=== PATIENT | male | born 1980 | race Caucasian/White ===

== ENCOUNTER 2018-09-22 16:02 | Observation (INO) | payer BC, OTHER ==
[2018-09-22] MEDS ORDERED: metroNIDAZOLE/Normal Saline 500 MG in Premix Bag 1 BAG IV ONE (16:19)
[2018-09-22] MEDS ORDERED: Sodium Chloride 0.9% 10 ML Syringe FLUSH PRN (16:21)
[2018-09-22] MEDS ORDERED: cefTRIAXone 2 GM in Sodium Chloride 0.9% 100 ML IV ONE (16:21)
[2018-09-22] MEDS ORDERED: Lidocaine 1% with EPINEPHrine 1:100,000 20 ML MDV ONE (18:07)
[2018-09-22] MEDS ORDERED: Rocuronium 50 MG/5 ML Vial ONE (18:07)
[2018-09-22] MEDS ORDERED: Ondansetron 4 MG/2 ML SDV ONE (18:07)
[2018-09-22] MEDS ORDERED: Lidocaine 1% 4 ML ONE (18:07)
[2018-09-22] MEDS ORDERED: Midazolam 1 MG/ML 2 ML SDV ONE (18:07)
[2018-09-22] MEDS ORDERED: Propofol 200 MG/20 ML SDV ONE (18:07)
[2018-09-22] MEDS ORDERED: Bupivacaine 0.5%/EPINEPHrine 1:200,000 50 ML MDV ONE (18:07)
[2018-09-22] MEDS ORDERED: fentaNYL 250 MCG/5 ML SDV ONE ×2 (18:07→19:08)
--- NOTE | 2018-09-22 18:24 | PCM.PREANE ---
Preanesthetic Assessment - Anesthesia/Transfusion/Family Hx Anesthesia History: Prior Anesthesia Without Reaction Family History of Anesthesia Reaction: No Transfusion History: No Prior Transfusion(s) - Review of Systems General: Malaise Pulmonary: No Symptoms Cardiovascular: No Symptoms Gastrointestinal: Abdominal Pain Neurological: No Symptoms Other: Reports: None - Physical Assessment NPO Status Date: 09/22/18 NPO Status Time: 04:45 Pulse: 67 O2 Sat by Pulse Oximetry: 97 Respiratory Rate: 16 Blood Pressure: 152/78 Temperature: 36.8 C Vital Signs: Last Vital Signs Temp 36.8 C 09/22/18 16:09 Pulse 67 09/22/18 16:09 Resp 16 09/22/18 16:09 BP 152/78 H 09/22/18 16:09 Pulse Ox 97 09/22/18 16:09 Height: 1.75 m Weight: 88.451 kg ASA Class: 2 Mental Status: Alert & Oriented x3 Airway Class: Mallampati = 1 Dentition: Reports: Normal Dentition, Alva(s) Thyro-Mental Finger Breadths: 3 Mouth Opening Finger Breadths: 3 ROM/Head Extension: Full Lungs: Clear to Auscultation, Normal Respiratory Effort Cardiovascular: Regular Rate, Regular Rhythm - Allergies Allergies/Adverse Reactions: Allergies Allergy/AdvReac Type Severity Reaction Status Date / Time No Known Allergies Allergy Verified 09/22/18 16:11 - Blood Blood Available: No Product(s) Available: None - Anesthesia Plan Pre-Op Medication Ordered: None - Acknowledgements Anesthesia Type Planned: General Anesthesia Pt an Appropriate Candidate for the Planned Anesthesia: Yes Alternatives and Risks of Anesthesia Discussed w Pt/Guardian: Yes Pt/Guardian Understands and Agrees with Anesthesia Plan: Yes PreAnesthesia Questionnaire - Past Health History Medical/Surgical History: Denies Medical/Surgical History Gastrointestinal History: Reports: GERD - SUBSTANCE USE Smoking Status *Q: Never Smoker Recreational Drug Use History: No - HOME MEDS Home Medications: Home Meds . [No Known Home Meds] 09/22/18 [History] - CURRENT (IN HOUSE) MEDS Current Meds: Current Medications Sodium Chloride (Saline Flush) 10 ml FLUSH ASDIRECTED PRN PRN Reason: Keep Vein Open Last Admin: 09/22/18 16:54 Dose: 10 ml Discontinued Medications Bupivacaine HCl/Epinephrine Bitart (Marcaine 0.5%/Epinephrine 1:200,000) Confirm Administered Dose 50 ml .ROUTE .STK-MED ONE Stop: 09/22/18 18:08 Fentanyl (Sublimaze) Confirm Administered Dose 250 mcg .ROUTE .STK-MED ONE Stop: 09/22/18 18:08 Ceftriaxone Sodium 2 gm/ (Sodium Chloride) 100 mls @ 200 mls/hr IV ONETIME ONE Stop: 09/22/18 16:50 Last Admin: 09/22/18 16:54 Dose: 200 mls/hr Metronidazole 500 mg/ Premix 100 mls @ 100 mls/hr IV ONETIME ONE Stop: 09/22/18 17:18 Last Admin: 09/22/18 16:54 Dose: 100 mls/hr Lidocaine HCl (Xylocaine-Mpf 1%) Confirm Administered Dose 4 mls @ as directed .ROUTE .STK-MED ONE Stop: 09/22/18 18:08 Lidocaine/Epinephrine (Xylocaine 1% With Epinephrine 1:100,000) Confirm Administered Dose 40 ml .ROUTE .STK-MED ONE Stop: 09/22/18 18:08 Midazolam HCl (Versed 1 Mg/Ml) Confirm Administered Dose 2 mg .ROUTE .STK-MED ONE Stop: 09/22/18 18:08 Ondansetron HCl (Zofran) Confirm Administered Dose 4 mg .ROUTE .STK-MED ONE Stop: 09/22/18 18:08 Propofol (Diprivan 20 Ml) Confirm Administered Dose 200 mg .ROUTE .STK-MED ONE Stop: 09/22/18 18:08 Rocuronium [place] (Zemuron) Confirm Administered Dose 50 mg .ROUTE .STK-MED ONE Stop: 09/22/18 18:08
[2018-09-22] MEDS ORDERED: HYDROmorphone 0.5 MG/0.5 ML Syringe ONE ×2 (18:56→18:57)
[2018-09-22] MEDS ORDERED: Lactated Ringers 1,000 ML ONE ×2 (19:08)
[2018-09-22] MEDS ORDERED: fentaNYL 100 MCG/2 ML SDV ONE (19:38)
--- NOTE | 2018-09-22 20:18 | PCM.HP ---
H&P History of Present Illness - General Date of Service: 09/22/18 Admit Problem/Dx: Admission Diagnosis/Problem Admission Diagnosis/Problem Appendectomy Source of Information: Patient History Limitations: Reports: No Limitations - History of Present Illness Initial Comments - Free Text/Narative: The patient is a 38 mL presents with a one-day history of abdominal pain. He reports having pain. 5 days ago that resolved and recurred today with more intensity. He reports feeling bloated and has obstipation. He denies any fever or chills. He denies a previous illness. He denies any hematochezia or melena. He was seen at the [facility] and had lab and CT evaluation. His white count of 12.9. A CT revealed findings of acute appendicitis - Related Data Allergies/Adverse Reactions: Allergies Allergy/AdvReac Type Severity Reaction Status Date / Time No Known Allergies Allergy Verified 09/22/18 16:11 Home Medications: Home Meds . [No Known Home Meds] 09/22/18 [History] Past Medical History - Past Health History Medical/Surgical History: Denies Medical/Surgical History Gastrointestinal History: Reports: GERD Social & Family History - Family History Cardiac: Reports: CAD, High Cholesterol, Hypertension - Tobacco Use Smoking Status *Q: Never Smoker - Caffeine Use Caffeine Use: Reports: Coffee - Recreational Drug Use Recreational Drug Use: No H&P Review of Systems - Review of Systems: Review Of Systems: See Below General: Reports: No Symptoms HEENT: Reports: No Symptoms Pulmonary: Reports: No Symptoms Cardiovascular: Reports: No Symptoms Gastrointestinal: Reports: Abdominal Pain, Decreased Appetite. Denies: Diarrhea Genitourinary: Reports: No Symptoms Musculoskeletal: Reports: No Symptoms Skin: Reports: No Symptoms Psychiatric: Reports: No Symptoms Neurological: Reports: No Symptoms Exam - Exam Exam: See Below - Vital Signs Vital Signs: Last Vital Signs Temp 36.8 C 09/22/18 18:24 Pulse 67 09/22/18 18:24 Resp 16 09/22/18 18:24 BP 152/78 H 09/22/18 18:24 Pulse Ox 97 09/22/18 18:24 Weight: 88.451 kg - Exam Quality Assessment: No: Supplemental Oxygen General: Alert, Oriented HEENT: Conjunctiva Clear, EOMI Neck: Supple Lungs: Normal Respiratory Effort GI/Abdominal Exam: Soft, No Distention, Tender (in RLQ). No: Guarding Extremities: Normal Inspection, No Pedal Edema Skin: Warm, Dry, Intact Neurological: Cranial Nerves Intact Neuro Extensive - Mental Status: Alert, Oriented x3, Normal Mood/Affect *Q Meaningful Use (ADM) - VTE Risk Assess *Q Each Risk Factor Represents 1 Point: Minor Surgery Planned Total Score 1 Point Risk Factors: 1 Problem List Initiated/Reviewed/Updated: Yes Orders Last 24hrs: Active Orders 24 hr Category Date Time Status Patient Status [ADT] Routine ADT 09/22/18 17:59 Active Peripheral IV Care [RC] . DIRECTED Care 09/22/18 16:22 Active Sodium Chloride 0.9% [Saline Flush] Med 09/22/18 16:21 Active 10 ml FLUSH ASDIRECTED PRN Peripheral IV Insertion Adult [OM.PC] Routine Oth 09/22/18 16:21 Ordered Schedule Procedure [COMM] Stat Oth 09/22/18 18:26 Ordered Medication Orders Sodium Chloride (Saline Flush) 10 ml FLUSH ASDIRECTED PRN PRN Reason: Keep Vein Open Last Admin: 09/22/18 16:54 Dose: 10 ml Assessment/Plan Comment:: 38-year-old gentleman with acute appendicitis -Plan for laparoscopic appendectomy, possible open. We discussed risks of bleeding, infection, possible bowel injury, and possible failure staple line. His written consent was obtained - IV antibiotics of Rocephin and metronidazole - Nothing by mouth - IV fluid resuscitation - Admission based on intraoperative findings Linda Stevens MD General Surgery
--- NOTE | 2018-09-22 20:19 | PCM.OPNOTE ---
- General Post-Op/Procedure Note Date of Surgery/Procedure: 09/22/18 Operative Procedure(s): Laparoscopic appendectomy Findings: Stiff and friable appendix and distal cecum. Purulent material within the appendix. Pre Op Diagnosis: Acute appendicitis Post-Op Diagnosis: Same Anesthesia Technique: General ET Tube Primary Surgeon: Linda Stevens Anesthesia Provider: Roger Rizo Pathology: Appendix Fluid Replacement, Intraop: 2,000 Output, Urine Amount: 0 EBL in mLs: 60 Complications: None apparent Condition: Good
[2018-09-22] MEDS ORDERED: Ondansetron 4 MG Tab.DIS PO PRN (20:25)
[2018-09-22] MEDS ORDERED: Acetaminophen/HYDROcodone 325-5 MG Tab PO PRN (20:25)
--- NOTE | 2018-09-22 20:25 | PCM.PRNOTE ---
- Free Text/Narrative Note: Operative Report Date of surgery: September 22, 2018 Preoperative diagnosis: acute appendicitis. Postoperative diagnosis: same Procedure performed: laparoscopic appendectomy Surgeon: Dr. Linda Stevens Anesthesia: General Grey Roll Man: . Roger Rizo CRNA Estimated blood loss 60 mL IV fluids: 2000 mL Urine output: 0 Drains and lines: None Findings: Stiff and friable appendix and distal cecum. Purulent material within the appendix Pathology: . Appendix Indications for procedure: The patient is a 38 year old male presents with findings of acute appendicitis. He was counseled for laparoscopic appendectomy with possible conversion to open. Risks of bleeding, infection, bowel injury and possible staple line failure were discussed. His written consent was obtained. Description of procedure: The patient was taken back to the operating room and placed in supine position on the operating table. SCD boots were in place and functional prior to the start of the procedure. Preoperative antibiotics were administered according to SCIP guidelines. He voided prior to coming into the OR, no Taylor was inserted. The patient had successful induction of general anesthesia and was intubated without difficulty. Pt was then prepped and draped in standard surgical fashion and a timeout was performed. We began by making a 15 mm incision in the infraumbilical skin and deepened down to level of the fascia which was then grasped and incised sharply. We entered the peritoneum and then placed stay sutures of 0 Vicryl on the fascial edges. A 12 mm Dougherty port was then placed into the umbilicus and the balloon was inflated. The abdomen was insufflated to 15 mmHg a 5 mm camera was inserted. There was no evidence of any injury created from entry into the abdomen. A TAP block was performed using mixed 1% lidocaine with epinephrine and 0.5% bupivacaine with epinephrine . We then proceeded to place a 5 mm port under direct visualization in the suprapubic midline and an additional 5mm port in the left lower quadrant. The patient was then positioned in Trendelenburg with right side elevated and we proceeded to mobilize the appendix. The appendix was very stiff and adherent to the abdominal wall while grasping the appendix, the appendix ruptured and purulent material was expressed. The appendix was then grasped and with blunt dissection was brought into the surgical field. The mesoappendix dissected from the appendix and taken with a vascular staple load. The appendix was then taken with a tissue staple load after more dissection of the base of the cecum. The appendix had from the cecum, right at its base so a small amount of cecum was also taken. After this was done, the specimen was placed in Endo Catch bag. An additional small portion of appendix tissue was dissected free from the area place a separate Endo Catch bag. We inspected the area and noted that there was a small area of cecum that did not appear to be well closed with nitin. An additional staple line was fired over this area. We then inspected and suctioned up any blood in the area. There was no active bleeding at the end of this case. All of the irrigation was removed from the abdomen. The specimens were withdrawn from the abdomen . The abdomen was then desufflated and the umbilical fascia closed with 0 Vicryl sutures and the stay sutures were tied, effectively closing the umbilical port site. The skin was then reapproximated at all port sites using a 4-0 Monocryl subcutaneous stitch and covered with Dermabond surgical glue. The patient tolerated the procedure. He was extubated and transported to the PACU in stable condition. All sponge and needle counts were correct. I was present and scrubbed for the entirety of the procedure. Linda Stevens MD General Surgery
[2018-09-22] MEDS ORDERED: HYDROmorphone 0.5 MG/0.5 ML Syringe IVPUSH PRN ×2 (20:29)
[2018-09-22] MEDS ORDERED: fentaNYL 100 MCG/2 ML SDV IVPUSH PRN (20:29)
[2018-09-22] MEDS ORDERED: Ketorolac 30 MG/ML SDV IVPUSH PRN (20:29)
[2018-09-22] MEDS ORDERED: Dextrose 5%-0.45% NaCl 1,000 ML IV SCH (20:30)
--- NOTE | 2018-09-22 20:31 | PCM.POSTAN ---
POST ANESTHESIA ASSESSMENT - MENTAL STATUS Mental Status: Alert, Oriented - VITAL SIGNS Pulse Rate: 100 SaO2: 96 Resp Rate: 17 Blood Pressure: 152/84 Temperature: 37.1 C - RESPIRATORY Respiratory Status: Respiratory Rate WNL, Airway Patent, O2 Saturation Stable - CARDIOVASCULAR CV Status: Pulse Rate WNL, Blood Pressure Stable - GASTROINTESTINAL GI Status: No Symptoms - PAIN Pain Score: 2 - POST OP HYDRATION Hydration Status: Adequate & Stable - OBSERVATIONS Free Text/Narrative:: no anesthesia complications noted
[2018-09-22] MEDS: Ibuprofen 600 MG Tab PO PRN (22:49)
[2018-09-22] MEDS: metroNIDAZOLE/Normal Saline 500 MG in Premix Bag 1 BAG IV SCH (23:37)
[2018-09-22] MEDS: Heparin Sodium 5,000 Units/ML Vial SUBCUT SCH (23:38)
[2018-09-23] MEDS: Ibuprofen 600 MG Tab PO PRN (06:35)
[2018-09-23] MEDS: metroNIDAZOLE/Normal Saline 500 MG in Premix Bag 1 BAG IV SCH (07:01)
[2018-09-23] MEDS: Heparin Sodium 5,000 Units/ML Vial SUBCUT SCH (07:02)
--- NOTE | 2018-09-23 07:18 | PCM.SURGPN ---
- General Info Date of Service: 09/23/18 POD#: 1 Functional Status: Reports: Pain Controlled, Tolerating Diet, Ambulating, Urinating, Incentive Spirometry - Patient Data Vitals - Most Recent: Last Vital Signs Temp 37.0 C 09/23/18 04:45 Pulse 83 09/23/18 04:45 Resp 18 09/23/18 04:45 BP 125/55 L 09/23/18 04:45 Pulse Ox 93 L 09/23/18 04:45 Weight - Most Recent: 91.716 kg I&O - Last 24 Hours: Intake & Output 09/22/18 09/23/18 09/23/18 22:59 06:59 14:59 Intake Total 2250 370 Output Total 0 300 Balance 2250 70 Med Orders - Current: Current Medications Hydrocodone Bitart/Acetaminophen (Mcandrews 325-5 Mg) 2 tab PO Q4H PRN PRN Reason: Pain (moderate 4-6) Heparin Sodium (Porcine) (Heparin Sodium) 5,000 units SUBCUT Q8H [facility] Last Admin: 09/23/18 07:02 Dose: 5,000 units Hydromorphone HCl (Dilaudid) 0.5 mg IVPUSH Q3H PRN PRN Reason: Breakthrough Pain Dextrose/Sodium Chloride (Dextrose 5%-1/2 Ns) 1,000 mls @ 125 mls/hr IV ASDIRECTED [facility] Last Admin: 09/22/18 22:39 Dose: 125 mls/hr Metronidazole 500 mg/ Premix 100 mls @ 100 mls/hr IV Q8H [facility] Stop: 09/23/18 08:59 Last Admin: 09/23/18 07:01 Dose: 100 mls/hr Ibuprofen (Motrin) 600 mg PO Q6H PRN PRN Reason: Pain (mild 1-3) Last Admin: 09/23/18 06:35 Dose: 600 mg Ondansetron HCl (Zofran Odt) 4 mg PO Q6H PRN PRN Reason: nausea, able to take PO Last Admin: 09/23/18 02:57 Dose: 4 mg Sodium Chloride (Saline Flush) 10 ml FLUSH ASDIRECTED PRN PRN Reason: Keep Vein Open Last Admin: 09/22/18 16:54 Dose: 10 ml Discontinued Medications Bupivacaine HCl/Epinephrine Bitart (Marcaine 0.5%/Epinephrine 1:200,000) Confirm Administered Dose 50 ml .ROUTE .STK-MED ONE Stop: 09/22/18 18:08 Last Admin: 09/22/18 18:56 Dose: 30 ml Fentanyl (Sublimaze) Confirm Administered Dose 250 mcg .ROUTE .STK-MED ONE Stop: 09/22/18 18:08 Fentanyl (Sublimaze) Confirm Administered Dose 250 mcg .ROUTE .STK-MED ONE Stop: 09/22/18 19:09 Fentanyl (Sublimaze) Confirm Administered Dose 100 mcg .ROUTE .STK-MED ONE Stop: 09/22/18 19:39 Fentanyl (Sublimaze) 50 mcg IVPUSH Q5M PRN PRN Reason: Pain Hydromorphone HCl (Dilaudid) Confirm Administered Dose 0.5 mg .ROUTE .STK-MED ONE Stop: 09/22/18 18:57 Hydromorphone HCl (Dilaudid) Confirm Administered Dose 0.5 mg .ROUTE .STK-MED ONE Stop: 09/22/18 18:58 Hydromorphone HCl (Dilaudid) 0.5 mg IVPUSH Q10M PRN PRN Reason: Pain (severe 7-10) Ceftriaxone Sodium 2 gm/ (Sodium Chloride) 100 mls @ 200 mls/hr IV ONETIME ONE Stop: 09/22/18 16:50 Last Admin: 09/22/18 16:54 Dose: 200 mls/hr Metronidazole 500 mg/ Premix 100 mls @ 100 mls/hr IV ONETIME ONE Stop: 09/22/18 17:18 Last Admin: 09/22/18 16:54 Dose: 100 mls/hr Lidocaine HCl (Xylocaine-Mpf 1%) Confirm Administered Dose 4 mls @ as directed .ROUTE .STK-MED ONE Stop: 09/22/18 18:08 Lactated Ringer's (Ringers, Lactated) Confirm Administered Dose 1,000 mls @ as directed .ROUTE .STK-MED ONE Stop: 09/22/18 19:09 Lactated Ringer's (Ringers, Lactated) Confirm Administered Dose 1,000 mls @ as directed .ROUTE .STK-MED ONE Stop: 09/22/18 19:09 Ketorolac Tromethamine (Toradol) 30 mg IVPUSH ONETIME PRN PRN Reason: Pain Last Admin: 09/23/18 02:57 Dose: 30 mg Lidocaine/Epinephrine (Xylocaine 1% With Epinephrine 1:100,000) Confirm Administered Dose 40 ml .ROUTE .STK-MED ONE Stop: 09/22/18 18:08 Last Admin: 09/22/18 18:56 Dose: 30 ml Midazolam HCl (Versed 1 Mg/Ml) Confirm Administered Dose 2 mg .ROUTE .STK-MED ONE Stop: 09/22/18 18:08 Ondansetron HCl (Zofran) Confirm Administered Dose 4 mg .ROUTE .STK-MED ONE Stop: 09/22/18 18:08 Propofol (Diprivan 20 Ml) Confirm Administered Dose 200 mg .ROUTE .STK-MED ONE Stop: 09/22/18 18:08 Rocuronium [place] (Zemuron) Confirm Administered Dose 50 mg .ROUTE .STK-MED ONE Stop: 09/22/18 18:08 - Exam Wound/Incisions: Healing Well, No Drainage General: Alert, Oriented Lungs: Normal Respiratory Effort GI/Abdominal Exam: Soft, No Distention, Tender (appropriately TTP) Skin: Warm, Dry, Intact - Problem List & Annotations (1) Acute appendicitis SNOMED Code(s): 29359729 Code(s): K35.80 - UNSPECIFIED ACUTE APPENDICITIS Status: Acute Current Visit: Yes Qualifiers: Acute appendicitis type: with localized peritonitis Appendicitis gangrene presence: without gangrene Appendicitis abscess presence: without abscess - Problem List Review Problem List Initiated/Reviewed/Updated: Yes - My Orders Last 24 Hours: Active Orders 24 hr Category Date Time Status Patient Status [ADT] Routine ADT 09/22/18 17:59 Active Patient Status [ADT] Routine ADT 09/22/18 20:25 Active Antiembolic Devices [RC] BID Care 09/22/18 20:27 Active Communication Order [RC] BID Care 09/22/18 20:29 Active Communication Order [RC] BID Care 09/22/18 20:31 Active May Shower [RC] ASDIRECTED Care 09/22/18 20:25 Active Notify Provider [RC] ASDIRECTED Care 09/22/18 20:29 Active Oxygen Therapy [RC] PRN Care 09/22/18 20:25 Active Pulse Oximetry [RC] ASDIRECTED Care 09/22/18 20:29 Active RT Incentive Spirometry [RC] Q1HWA Care 09/22/18 20:29 Active Up ad Jacqueline [RC] BID Care 09/22/18 20:25 Active VTE/DVT Education [] DAILY Care 09/22/18 20:25 Active Vital Signs [] Q4HR Care 09/22/18 20:25 Active Regular Diet [DIET] Diet 09/22/18 Dinner Active Acetaminophen/HYDROcodone [Mcandrews 325-5 MG] Med 09/22/18 20:25 Active 2 tab PO Q4H PRN Dextrose 5%-0.45% NaCl [Dextrose 5%-1/2 NS] 1,000 ml Med 09/22/18 20:30 Active IV ASDIRECTED HYDROmorphone [Dilaudid] Med 09/22/18 20:29 Active 0.5 mg IVPUSH Q3H PRN Heparin Sodium Med 09/23/18 00:00 Active 5,000 units SUBCUT Q8H Ibuprofen [Motrin] Med 09/22/18 20:25 Active 600 mg PO Q6H PRN Ondansetron [Zofran ODT] Med 09/22/18 20:25 Active 4 mg PO Q6H PRN Sodium Chloride 0.9% [Saline Flush] Med 09/22/18 16:21 Active 10 ml FLUSH ASDIRECTED PRN metroNIDAZOLE/Normal Saline [Flagyl 500 MG in NS 100 ML Med 09/23/18 00:00 Active ] 500 mg Premix Bag 1 bag IV Q8H Peripheral IV Insertion Adult [OM.PC] Routine Oth 09/22/18 16:21 Ordered Schedule Procedure [COMM] Stat Oth 09/22/18 18:26 Ordered Sequential Compression Device [OM.PC] Per Unit Routine Oth 09/22/18 20:26 Ordered Resuscitation Status Routine Resus Stat 09/22/18 20:25 Ordered Medication Orders Hydrocodone Bitart/Acetaminophen ([place]and[place] 325-5 Mg) 2 tab PO Q4H PRN PRN Reason: Pain (moderate 4-6) Heparin Sodium (Porcine) (Heparin Sodium) 5,000 units SUBCUT Q8H [facility] Last Admin: 09/23/18 07:02 Dose: 5,000 units Admin: 09/22/18 23:38 Dose: 5,000 units Hydromorphone HCl (Dilaudid) 0.5 mg IVPUSH Q3H PRN PRN Reason: Breakthrough Pain Dextrose/Sodium Chloride (Dextrose 5%-1/2 Ns) 1,000 mls @ 125 mls/hr IV ASDIRECTED [facility] Last Admin: 09/22/18 22:39 Dose: 125 mls/hr Metronidazole 500 mg/ Premix 100 mls @ 100 mls/hr IV Q8H [facility] Stop: 09/23/18 08:59 Last Admin: 09/23/18 07:01 Dose: 100 mls/hr Infusion: 09/23/18 00:37 Dose: 100 mls/hr Admin: 09/22/18 23:37 Dose: 100 mls/hr Ibuprofen (Motrin) 600 mg PO Q6H PRN PRN Reason: Pain (mild 1-3) Last Admin: 09/23/18 06:35 Dose: 600 mg Admin: 09/22/18 22:49 Dose: 600 mg Ondansetron HCl (Zofran Odt) 4 mg PO Q6H PRN PRN Reason: nausea, able to take PO Last Admin: 09/23/18 02:57 Dose: 4 mg Sodium Chloride (Saline Flush) 10 ml FLUSH ASDIRECTED PRN PRN Reason: Keep Vein Open Last Admin: 09/22/18 16:54 Dose: 10 ml - Assessment Assessment (Free Text/Narrative):: 38 y/o male with acute appendicitis. Now POD1 s/p laparoscopic appendectomy with some spillage of purulent material and need for 24h antibiotics - Plan Plan (Free Text/Narrative):: - continue current pain regimen - incentive spirometry - encourage ambulation - regular diet - may discharge home after completion of antibiotics Linda Stevens MD General surgery
--- NOTE | 2018-09-23 07:27 | PCM.DCSUM1 ---
Discharge Summary - Hospital Course Free Text/Narrative:: The patient had acute appendicitis and had a successful laparoscopic appendectomy. He was tolerating his diet with good pain control and ambulating on POD 1. He was discharged home. Diagnosis: Stroke: No Modified Bernie Scale: No Signif.Disability Despite Sympt.Able to Carry Out Usual Act./Duties Modified Bernie Scale Score: 1 - Discharge Data Discharge Date: 09/23/18 Discharge Disposition: Home, Self-Care 01 Condition: Good - Discharge Diagnosis/Problem(s) (1) Acute appendicitis SNOMED Code(s): 53585425 ICD Code: K35.80 - UNSPECIFIED ACUTE APPENDICITIS Status: Acute Current Visit: Yes Qualifiers: Acute appendicitis type: with localized peritonitis Appendicitis gangrene presence: without gangrene Appendicitis abscess presence: without abscess - Patient Summary/Data Operative Procedure(s) Performed: Laparoscopic appendectomy - Patient Instructions Diet: Usual Diet as Tolerated Activity: As Tolerated, No Lifting Over 20 Pounds (for 2 weeks), No Strenuous Activities (for 2 weeks) Showering/Bathing: May Shower, No Tub Bathing/Swimming (for 2 weeks) Wound/Incision Care: Keep Operative Site/Wound Site Clean and Dry Notify Provider of: Fever, Increased Pain, Swelling and Redness, Drainage, Nausea and/or Vomiting - Discharge Plan *PRESCRIPTION DRUG MONITORING PROGRAM REVIEWED*: Not Applicable *COPY OF PRESCRIPTION DRUG MONITORING REPORT IN PATIENT AMANDA: Not Applicable Prescriptions/Med Rec: Acetaminophen/HYDROcodone [[place] 325-5 MG] 1 tab PO Q4H PRN 14 Days #40 tablet PRN Reason: Pain (Moderate 4-6) Docusate Sodium [Colace] 100 mg PO BID 20 Days #40 cap Ibuprofen [Motrin] 600 mg PO Q6H PRN 14 Days #100 tablet PRN Reason: Pain (Mild 1-3) Home Medications: Home Meds Acetaminophen/HYDROcodone [[place] 325-5 MG] 1 tab PO Q4H PRN 14 Days #40 tablet 09/23/18 [Rx] Docusate Sodium [Colace] 100 mg PO BID 20 Days #40 cap 09/23/18 [Rx] Ibuprofen [Motrin] 600 mg PO Q6H PRN 14 Days #100 tablet 09/23/18 [Rx] Patient Handouts: Laparoscopic Appendectomy, Adult, Care After Forms: ED Department Discharge Referrals: PCP,None [Primary Care Provider] - (follow up in 2 weeks) Brianna Alfred DIRECTOR INTERNAL COMMUNICATIONS [Nurse Practitioner] - (follow up in 2 weeks) - Discharge Summary/Plan Comment DC Time >30 min.: No - Patient Data Vitals - Most Recent: Last Vital Signs Temp 37.0 C 09/23/18 04:45 Pulse 83 09/23/18 04:45 Resp 18 09/23/18 04:45 BP 125/55 L 09/23/18 04:45 Pulse Ox 93 L 09/23/18 04:45 Weight - Most Recent: 91.716 kg I&O - Last 24 hours: Intake & Output 09/22/18 09/23/18 09/23/18 22:59 06:59 14:59 Intake Total 2250 370 Output Total 0 300 Balance 2250 70 Med Orders - Current: Current Medications Hydrocodone Bitart/Acetaminophen ([place] 325-5 Mg) 2 tab PO Q4H PRN PRN Reason: Pain (moderate 4-6) Heparin Sodium (Porcine) (Heparin Sodium) 5,000 units SUBCUT Q8H [facility] Last Admin: 09/23/18 07:02 Dose: 5,000 units Hydromorphone HCl (Dilaudid) 0.5 mg IVPUSH Q3H PRN PRN Reason: Breakthrough Pain Dextrose/Sodium Chloride (Dextrose 5%-1/2 Ns) 1,000 mls @ 125 mls/hr IV ASDIRECTED [facility] Last Admin: 09/22/18 22:39 Dose: 125 mls/hr Metronidazole 500 mg/ Premix 100 mls @ 100 mls/hr IV Q8H [facility] Stop: 09/23/18 08:59 Last Admin: 09/23/18 07:01 Dose: 100 mls/hr Ibuprofen (Motrin) 600 mg PO Q6H PRN PRN Reason: Pain (mild 1-3) Last Admin: 09/23/18 06:35 Dose: 600 mg Ondansetron HCl (Zofran Odt) 4 mg PO Q6H PRN PRN Reason: nausea, able to take PO Last Admin: 09/23/18 02:57 Dose: 4 mg Sodium Chloride (Saline Flush) 10 ml FLUSH ASDIRECTED PRN PRN Reason: Keep Vein Open Last Admin: 09/22/18 16:54 Dose: 10 ml Discontinued Medications Bupivacaine HCl/Epinephrine Bitart ([place]aine 0.5%/Epinephrine 1:200,000) Confirm Administered Dose 50 ml .ROUTE .STK-MED ONE Stop: 09/22/18 18:08 Last Admin: 09/22/18 18:56 Dose: 30 ml Fentanyl (Sublimaze) Confirm Administered Dose 250 mcg .ROUTE .STK-MED ONE Stop: 09/22/18 18:08 Fentanyl (Sublimaze) Confirm Administered Dose 250 mcg .ROUTE .STK-MED ONE Stop: 09/22/18 19:09 Fentanyl (Sublimaze) Confirm Administered Dose 100 mcg .ROUTE .STK-MED ONE Stop: 09/22/18 19:39 Fentanyl (Sublimaze) 50 mcg IVPUSH Q5M PRN PRN Reason: Pain Hydromorphone HCl (Dilaudid) Confirm Administered Dose 0.5 mg .ROUTE .STK-MED ONE Stop: 09/22/18 18:57 Hydromorphone HCl (Dilaudid) Confirm Administered Dose 0.5 mg .ROUTE .STK-MED ONE Stop: 09/22/18 18:58 Hydromorphone HCl (Dilaudid) 0.5 mg IVPUSH Q10M PRN PRN Reason: Pain (severe 7-10) Ceftriaxone Sodium 2 gm/ (Sodium Chloride) 100 mls @ 200 mls/hr IV ONETIME ONE Stop: 09/22/18 16:50 Last Admin: 09/22/18 16:54 Dose: 200 mls/hr Metronidazole 500 mg/ Premix 100 mls @ 100 mls/hr IV ONETIME ONE Stop: 09/22/18 17:18 Last Admin: 09/22/18 16:54 Dose: 100 mls/hr Lidocaine HCl (Xylocaine-Mpf 1%) Confirm Administered Dose 4 mls @ as directed .ROUTE .STK-MED ONE Stop: 09/22/18 18:08 Lactated Ringer's (Ringers, Lactated) Confirm Administered Dose 1,000 mls @ as directed .ROUTE .STK-MED ONE Stop: 09/22/18 19:09 Lactated Ringer's (Ringers, Lactated) Confirm Administered Dose 1,000 mls @ as directed .ROUTE .STK-MED ONE Stop: 09/22/18 19:09 Ketorolac Tromethamine (Toradol) 30 mg IVPUSH ONETIME PRN PRN Reason: Pain Last Admin: 09/23/18 02:57 Dose: 30 mg Lidocaine/Epinephrine (Xylocaine 1% With Epinephrine 1:100,000) Confirm Administered Dose 40 ml .ROUTE .STK-MED ONE Stop: 09/22/18 18:08 Last Admin: 09/22/18 18:56 Dose: 30 ml Midazolam HCl (Versed 1 Mg/Ml) Confirm Administered Dose 2 mg .ROUTE .STK-MED ONE Stop: 09/22/18 18:08 Ondansetron HCl (Zofran) Confirm Administered Dose 4 mg .ROUTE .STK-MED ONE Stop: 09/22/18 18:08 Propofol (Diprivan 20 Ml) Confirm Administered Dose 200 mg .ROUTE .STK-MED ONE Stop: 09/22/18 18:08 Rocuronium [place] (Zemuron) Confirm Administered Dose 50 mg .ROUTE .STK-MED ONE Stop: 09/22/18 18:08
--- NOTE | 2018-09-23 09:06 | PCM48HPAN ---
Post Anesthesia Note - EVALUATION WITHIN 48HRS OF ANESTHETIC Vital Signs in Normal Range: Yes Patient Participated in Evaluation: Yes Respiratory Function Stable: Yes Airway Patent: Yes Cardiovascular Function Stable: Yes Hydration Status Stable: Yes Pain Control Satisfactory: Yes Nausea and Vomiting Control Satisfactory: Yes Mental Status Recovered: Yes
== END 2018-09-23 08:58 | disposition home or self-care (01) ==
LOC: JD.ED 16:02 → JD.SDS 18:00 → JD.MS 21:34
PROVIDERS: ADMIT Surgery; ATTEND Surgery
DX: K35.80 Unspecified acute appendicitis (principal); K21.9 Gastro-esophageal reflux disease without esophagitis
CPT/HCPCS: 44970; 96365; 96368; 99284; A9270; G0378; J0696; J1170; J1644; J1885; J2001; J2250; J2405; J2704; J3010; J3490; J7030; J7042; J7120; 00840

== ENCOUNTER 2018-09-25 21:41 | Inpatient (IN) | payer OTHER ==
[2018-09-26] MEDS ORDERED: Sodium Chloride 0.9% 1,000 ML IV SCH ×2 (00:30→02:15)
--- NOTE | 2018-09-26 00:31 | EDM.PDOC ---
ED HPI GENERAL MEDICAL PROBLEM - General Chief Complaint: Abdominal Pain Stated Complaint: VOMITING Time Seen by Provider: 09/25/18 23:01 Source of Information: Reports: Patient History Limitations: Reports: No Limitations - History of Present Illness INITIAL COMMENTS - FREE TEXT/NARRATIVE: This is a 38-year-old male. He has appendix taken out on Friday was discharged from the hospital on Friday and he is noted since leaving the hospital that he has not had a bowel movement and his belly has become more and more distended. It got bad enough that he decided to come to the ER for evaluation because he has been so uncomfortable. Apparently this afternoon he vomited up a large amount of substance and fluids and that scared him and so he comes to the ER. He has had no fever and no chills. He is only passed a small amount of gas and nothing recently. He has taken 5 [place] tablet since he left the hospital please also been on stool softeners with the bloating is so bad he says it hurts up underneath his ribs and he has a hard time breathing if he lies down. Treatments REPAIR CLERK: Reports: Other (see below) Other Treatments REPAIR CLERK: norco about 0800 Abdomen Pain Score (Numeric/FACES): 7 - Related Data Allergies Allergy/AdvReac Type Severity Reaction Status Date / Time No Known Allergies Allergy Verified 09/22/18 16:11 Home Meds: Home Meds Acetaminophen/HYDROcodone [[place] 325-5 MG] 1 tab PO Q4H PRN 14 Days #40 tablet 09/23/18 [Rx] Docusate Sodium [Colace] 100 mg PO BID 20 Days #40 cap 09/23/18 [Rx] Ibuprofen [Motrin] 600 mg PO Q6H PRN 14 Days #100 tablet 09/23/18 [Rx] Past Medical History - Past Health History Medical/Surgical History: Denies Medical/Surgical History HEENT History: Reports: Other (See Below) Other HEENT History: Pt wears glasses, continues to have poor vision with corrective lenses Gastrointestinal History: Reports: GERD - Past Surgical History HEENT Surgical History: Reports: None GI Surgical History: Reports: Appendectomy Dermatological Surgical History: Reports: None Social & Family History - Family History Family Medical History: Noncontributory Cardiac: Reports: CAD, High Cholesterol, Hypertension - Tobacco Use Smoking Status *Q: Current Every Day Smoker Years of Tobacco use: 20 Packs/Tins Daily: 0.2 - Caffeine Use Caffeine Use: Reports: Coffee, Energy Drinks, Soda, Tea - Recreational Drug Use Recreational Drug Use: No ED ROS GENERAL - Review of Systems Review Of Systems: See Below Constitutional: Denies: Fever, Chills HEENT: Reports: No Symptoms Respiratory: Reports: Shortness of Breath. Denies: Cough Cardiovascular: Reports: No Symptoms Endocrine: Reports: No Symptoms GI/Abdominal: Reports: Abdominal Pain, Distension, Nausea, Vomiting. Denies: Flatus : Reports: No Symptoms Musculoskeletal: Reports: No Symptoms Skin: Reports: No Symptoms Neurological: Reports: No Symptoms Psychiatric: Reports: No Symptoms Hematologic/Lymphatic: Reports: No Symptoms ED EXAM, GI/ABD - Physical Exam Exam: See Below Exam Limited By: No Limitations General Appearance: Alert, WD/WN, Mild Distress Eyes: Bilateral: Normal Appearance Ears: Normal External Exam Nose: Normal Inspection Throat/Mouth: Normal Inspection, Normal Lips, Normal Voice, No Airway Compromise Head: Normocephalic Neck: Supple Respiratory/Chest: No Respiratory Distress, Lungs Clear, Normal Breath Sounds Cardiovascular: Regular Rate, Rhythm, No Murmur GI/Abdominal Exam: Distended, Tender, Abnormal Bowel Sounds, Other (He is definitely distended and tense, very tender all over on palpation, bowel sounds are decreased markedly) Back Exam: Full Range of Motion Extremities: Normal Inspection, Normal Range of Motion Neurological: Alert, Oriented Psychiatric: Normal Affect, Normal Mood Skin Exam: Warm, Dry Course - Vital Signs Last Recorded V/S: Last Vital Signs Temp 98.3 F 09/25/18 22:05 Pulse 95 09/25/18 22:05 Resp 20 09/25/18 22:05 BP 160/95 H 09/25/18 22:05 Pulse Ox 87 L 09/25/18 22:05 - Orders/Labs/Meds Orders: Active Orders 24 hr Category Date Time Status Abdomen 2V AP Flat Upright [CR] Stat Exams 09/25/18 23:13 Taken Abdomen Pelvis w Cont [CT] Stat Exams 09/26/18 00:25 Taken Sodium Chloride 0.9% [Normal Saline] 1,000 ml Med 09/26/18 00:30 Active IV ASDIRECTED NG [Nasogastric Orogastric Tube Insertion] [OM.PC] Oth 09/26/18 02:00 Ordered Routine Medication Orders Sodium Chloride (Normal Saline) 1,000 mls @ 250 mls/hr IV ASDIRECTED [facility] Last Admin: 09/26/18 01:01 Dose: 250 mls/hr Labs: Laboratory Tests 09/25/18 09/25/18 Range/Units 23:27 23:27 WBC 15.11 H (4.23-9.07) K/mm3 RBC 4.60 L (4.63-6.08) M/mm3 Hgb 13.9 (13.7-17.5) gm/L Hct 42.0 (40.1-51.0) % MCV 91.3 (79.0-92.2) fl MCH 30.2 (25.7-32.2) pg MCHC 33.1 (32.2-35.5) g/dl RDW Std Deviation 43.9 (35.1-43.9) fL Plt Count 357 H (163-337) K/mm3 MPV 8.9 L (9.4-12.3) fl Neut % (Auto) 87.8 H (34.0-67.9) % Lymph % (Auto) 4.9 L (21.8-53.1) % [place] % (Auto) 6.9 (5.3-12.2) % Eos % (Auto) 0.1 L (0.8-7.0) Baso % (Auto) 0.1 (0.1-1.2) % Neut # (Auto) 13.26 H (1.78-5.38) K/mm3 Lymph # (Auto) 0.74 L (1.32-3.57) K/mm3 [place] # (Auto) 1.05 H (0.30-0.82) K/mm3 Eos # (Auto) 0.01 L (0.04-0.54) K/mm3 Baso # (Auto) 0.02 (0.01-0.08) K/mm3 Manual Slide Review Abnormal smear Sodium 137 (136-145) mEq/L Potassium 3.8 (3.5-5.1) mEq/L Chloride 97 L (98-107) mEq/L Carbon Dioxide 31 (21-32) mEq/L Anion Gap 12.8 (5-15) BUN 12 (7-18) mg/dL Creatinine 1.0 (0.7-1.3) mg/dL Est Cr Clr Drug Dosing 99.18 mL/min Estimated GFR (MDRD) > 60 (>60) mL/min BUN/Creatinine Ratio 12.0 L (14-18) Glucose 133 H (74-106) mg/dL Calcium 10.0 (8.5-10.1) mg/dL Total Bilirubin 0.7 (0.2-1.0) mg/dL AST 13 L (15-37) U/L ALT 26 (16-63) U/L Alkaline Phosphatase 145 H (46-116) U/L Total Protein 8.2 (6.4-8.2) g/dl Albumin 3.2 L (3.4-5.0) g/dl Globulin 5.0 gm/dL Albumin/Globulin Ratio 0.6 L (1-2) Meds: Medications Generic Name Dose Route Start Last Admin Trade Name Freq PRN Reason Stop Dose Admin Sodium Chloride 1,000 mls @ 250 mls/hr 09/26/18 00:30 09/26/18 01:01 Normal Saline IV 250 mls/hr ASDIRECTED TIFFANI Administration Discontinued Medications Generic Name Dose Route Start Last Admin Trade Name Freq PRN Reason Stop Dose Admin Iopamidol 100 ml 09/26/18 00:42 09/26/18 00:45 Isovue-300 (61%) IVPUSH 09/26/18 00:43 100 ml ONETIME ONE Administration - Radiology Interpretation Free Text/Narrative:: CT scan with IV contrast suggests he's got a very dilated stomach and dilated small bowel with postoperative free intraperitoneal air and some free fluid in the pelvis. They believe that this is probably postoperative ileus since there is no significant transition zone noted. - Re-Assessments/Exams Free Text/Narrative Re-Assessment/Exam: 09/26/18 01:55 I spoke to the patient regarding the CT scan results and the need of an NG tube and further evaluation by the surgeon. 09/26/18 02:[address] Karimi who is exhibition designer for surgery and he agrees to admit the patient for further evaluation and treatment. We will place the NG tube in the ER before he goes to the floor. Departure - Departure Time of Disposition: 02:09 Disposition: Admitted As Inpatient 65 Condition: Fair Clinical Impression: Postoperative ileus, Abdominal distention, Status post appendectomy Abdominal pain Qualifiers: Abdominal location: generalized Qualified Code(s): R10.84 - Generalized abdominal pain - Discharge Information ED Communication - ED Communication Date/Time Date: 09/26/18 Time Called: 02:11 - Discussed Case With (1) Discussed Case With (1): Admitting Provider Person/s Notified (1): Kyrie Karimi (He will admit for further evaluation and treatment) - My Orders Last 24 Hours: My Active Orders 09/25/18 23:13 Abdomen 2V AP Flat Upright [CR] Stat 09/26/18 00:25 Abdomen Pelvis w Cont [CT] Stat 09/26/18 00:30 Sodium Chloride 0.9% [Normal Saline] 1,000 ml IV ASDIRECTED 09/26/18 02:00 NG [Nasogastric Orogastric Tube Insertion] [OM.PC] Routine - Assessment/Plan Last 24 Hours: My Active Orders 09/25/18 23:13 Abdomen 2V AP Flat Upright [CR] Stat 09/26/18 00:25 Abdomen Pelvis w Cont [CT] Stat 09/26/18 00:30 Sodium Chloride 0.9% [Normal Saline] 1,000 ml IV ASDIRECTED 09/26/18 02:00 NG [Nasogastric Orogastric Tube Insertion] [OM.PC] Routine
[2018-09-26] MEDS ORDERED: Iopamidol 612 MG/ML 100 ML Bottle IVPUSH ONE (00:42)
[2018-09-26] MEDS ORDERED: Ondansetron 4 MG/2 ML SDV IVPUSH PRN (04:36)
[2018-09-26] MEDS: Sodium Chloride 0.9% 1,000 ML IV SCH ×2 (07:32→18:31)
[2018-09-26] MEDS ORDERED: Piperacillin/Tazobactam 4.5 GM in Sodium Chloride 0.9% 100 ML IV ONE (10:00)
[2018-09-26] MEDS: Enoxaparin 40 MG/0.4 ML Syringe SUBCUT SCH (10:33)
[2018-09-26] MEDS: Piperacillin/Tazobactam 4.5 GM in Sodium Chloride 0.9% 100 ML IV SCH (17:06)
[2018-09-27] MEDS: Piperacillin/Tazobactam 4.5 GM in Sodium Chloride 0.9% 100 ML IV SCH ×3 (01:01→17:08)
[2018-09-27] MEDS: Sodium Chloride 0.9% 1,000 ML IV SCH (07:50)
[2018-09-27] MEDS: Enoxaparin 40 MG/0.4 ML Syringe SUBCUT SCH (09:30)
[2018-09-27] MEDS: Pantoprazole 40 MG Tab.CR PO SCH (11:05)
[2018-09-27] MEDS: D5 1/2 NS w/ 20 mEq/L KCl 1,000 ML IV SCH ×2 (11:06→21:22)
--- NOTE | 2018-09-27 11:13 | PN ---
DATE OF SERVICE: 09/27/2018 SUBJECTIVE: Mr. Pagan continues to have no appetite. He had some low-Volume dark urine last night, though his creatinine looks unremarkable. He has no nausea or vomiting. He is still complaining of abdominal pain. More concerning is sensation of tenesmus at the end of a bowel movement. In addition, he also has pain in the end of defecation around the rectum. This may be concerning for developing abscess. He says he has no interest in solid food. He is ambulating, and he has had several more loose bowel movements. He denies any shaking, chills, or fever. OBJECTIVE: GENERAL: He is alert. He is in no obvious distress, sitting up, reading a newspaper. VITAL SIGNS: Temperature 99.1, pulse 72, respirations 20, blood pressure 131/91, and saturating 94% on room air. HEAD AND NECK: Normocephalic and atraumatic. He is anicteric. LUNGS: Clear. He has some diminished breath sounds at the bases without wheeze, rhonchi, or rales. HEART: Regular rate and rhythm. No clicks, murmurs, or rubs. ABDOMEN: Soft. He is still mildly tender, greatest in the right lower quadrant. There is no rebound or guarding. EXTREMITIES: No clubbing, cyanosis, or edema. No calf tenderness. LABORATORY DATA: His leukocytosis has improved, but still persistent with a left shift. There are no bands and/or atypical cells. I noted a drop in his potassium to 3.3 and a glucose of 119. ASSESSMENT: 1. Peritonitis. 2. Postoperative ileus. 3. Hypokalemia, which is certainly iatrogenic from his normal saline. PLAN: I will switch over his IV fluids to D5 half-normal saline with potassium. I will repeat his labs in the morning. I think he needs to stay another day. It does not look like he is taking enough in terms of a diet to sustain himself. My concern is he is developing an abscess that may declare itself with spiking fevers and persistent ileus. If his leukocytosis is increased tomorrow, I will re-scan him. MMODAL /[id number]
[2018-09-27] MEDS ORDERED: Acetaminophen 325 MG Tab PO PRN (14:28)
[2018-09-27] MEDS: Acetaminophen/oxyCODONE 325-5 MG Tab PO PRN (21:23)
[2018-09-28] MEDS ORDERED: Morphine 4 MG/ML Syringe IVPUSH PRN (03:35)
[2018-09-28] MEDS: Piperacillin/Tazobactam 4.5 GM in Sodium Chloride 0.9% 100 ML IV SCH ×2 (03:36→09:49)
[2018-09-28] MEDS ORDERED: Morphine 2 MG/ML Syringe ONE (03:40)
[2018-09-28] MEDS ORDERED: Morphine 2 MG/ML Syringe IVPUSH PRN (04:00)
[2018-09-28] MEDS: Acetaminophen/oxyCODONE 325-5 MG Tab PO PRN ×2 (04:47→11:17)
[2018-09-28] MEDS: Pantoprazole 40 MG Tab.CR PO SCH (07:03)
[2018-09-28] MEDS ORDERED: Diatrizoate Meglumine/Diatrizoate Sodium 37% 120 ML Bottle PO ONE (07:43)
[2018-09-28] MEDS ORDERED: Sodium Chloride 0.9% 10 ML Syringe FLUSH ONE (07:43)
[2018-09-28] MEDS ORDERED: Iopamidol 612 MG/ML 100 ML Bottle IVPUSH ONE (07:43)
--- NOTE | 2018-09-28 08:01 | CR ---
Abdomen: Supine and upright views of the abdomen were obtained. Comparison: No prior abdominal x-ray. Dilated gas-filled loops of small bowel are seen. Findings have the appearance of small bowel obstruction. No free air is seen. Slight atelectasis is noted within the left lung base. Bony structures are within normal limits. Surgical anastomotic sutures are seen within the right lower abdomen. Contrast is noted presumably from subsequent CT exam within the colon. Impression: 1. Findings suspicious for small bowel obstruction. 2. Other incidental findings as noted above. Diagnostic code #3
--- NOTE | 2018-09-28 09:36 | CT ---
CT abdomen and pelvis Technique: Multiple axial sections were obtained from above the dome of the diaphragm inferiorly through the pubic symphysis. Intravenous and oral contrast was utilized. Delayed images were obtained through the bladder. Comparison: Prior abdominal x-ray of 09/25/18. Findings: Fluid is noted as well as air within a slightly dilated stomach. Dilated fluid-filled and air-filled small bowel loops are seen. Very distal terminal ileum appears to be decompressed. Findings are suspicious for either ileus or distal small bowel obstruction. There is a small amount of free air being seen presumably due to previous surgery for appendectomy. Minimal atelectasis is seen within both lung bases. Liver contains no focal abnormality. Spleen appears within normal limits. Adrenal glands show no nodule. Kidneys contain no cyst or solid abnormality. No calcifications are seen within the kidneys. Pancreas is within normal limits. Aorta shows no aneurysm. No retroperitoneal adenopathy or mesenteric abnormalities are seen. No pelvic mass or adenopathy is seen. Mild amount of fluid is seen within the right paracolic gutter. Fluid-filled collection is seen within the pelvis which does not have simple Hounsfield unit measurements. This has maximum measurement of 8.7 cm. Delayed images show contrast within the distal ureters and within the bladder. Bone window settings were reviewed which showed degenerative disc space narrowing within the L5-S1 level with vacuum phenomena. Impression: 1. Dilated small bowel loops with decompressed very distal ileum. Findings may represent severe postoperative ileus versus distal small bowel obstruction. 2. Small amount of free air most likely relating to previous surgery. 3. Fluid collection within the pelvis. Differential includes liquefying hematoma versus abscess. Small amount of fluid within the right paracolic gutter either due to pus or blood. Diagnostic code #3 Mildly disagree with preliminary report from [facility] (possible pelvic abscess as noted above), finalized on 09/26/18, 2:32 AM Central Time, code #1
--- NOTE | 2018-09-28 09:36 | CT ---
CT abdomen and pelvis Technique: Multiple axial sections were obtained from above the dome of the diaphragm inferiorly through the pubic symphysis. Intravenous contrast was utilized. Small amount of oral contrast is noted from recent CT exam. Comparison: Prior CT study of 09/25/18. Findings: Continuing dilated small bowel loops are seen down to the distal terminal ileum. Dilated fluid-filled stomach is also seen. Fluid-filled structure is noted within the pelvis. This does not appear simple in Hounsfield unit measurements and could possibly represent abscess or liquefying hematoma. This finding measures approximately 9.5 cm x 5.7 cm in AP and transverse dimension. Craniocaudal dimensions are 6.8 cm. This finding is fairly similar to previous exam. Small amount of free air is again noted. Atelectasis is noted within the right lung base. Liver shows no focal abnormality. Small amount of fluid is seen within the right paracolic gutter. This has slightly increased Hounsfield unit measurements and difficult to exclude blood or pus. Kidneys show symmetric contrast enhancement. Pancreas is within normal limits. Adrenal glands show no nodule. Aorta contains no aneurysm. No retroperitoneal adenopathy is seen. No mesenteric abnormalities are appreciated. Bone window settings were reviewed which show disc space narrowing at L5-S1. Impression: 1. Slightly complicated fluid collection within the pelvis. Measurements as noted above. Difficult to exclude pelvic abscess. This finding is stable from previous exam performed one day earlier. 2. Small amount of fluid within the right paracolic gutter also slightly increased in Hounsfield unit measurements which may represent blood or pus. 3. Continuing dilated small bowel and stomach which can represent severe ileus or distal small bowel obstruction. 4. Small amount of free air is again noted. Other findings believed to be incidental. Diagnostic code #5 Medicine Technologist called and talked to KATHY Trotter, Dr. Karimi's nurse on 09/28/18 at 8:50 a.m.
[2018-09-28] MEDS: Enoxaparin 40 MG/0.4 ML Syringe SUBCUT SCH (09:50)
--- NOTE | 2018-09-28 11:07 | HP ---
DATE OF ADMISSION: 09/26/2018 ADMITTING DIAGNOSES: Postoperative ileus and peritonitis. HISTORY OF PRESENT ILLNESS: The patient is a 38-year-old male, who is just 4 days out from a laparoscopic appendectomy. He came in with classic symptoms of acute appendicitis. Dr. Newell brought him to the operating room and performed an uneventful laparoscopic appendectomy. He was discharged the following morning. I see the pathology returned perforated acute appendicitis. The patient did well for a couple of days, but started developing increasing abdominal pain associated with abdominal distention and obstipation. He tolerated his discomfort for a day or so, but turned up in the ED last night with intolerable distention and pain. He has had multiple episodes of bilious vomiting. In the ED, he had a CT scan, which demonstrated an ileus. We do not have an official radiology finding. However, he was treated with a nasogastric tube. It was also notable that he had an elevated white count of 15,000. Once the nasogastric tube was in, he had an immediate efflux of 700 mL of dark green fluid, another 700 emanated within the next hour. He was transferred to the floor for care overnight. There was another 700 mL in the jug this morning. He says he feels substantially better today. He said he actually had a bowel movement and is passing flatus. He is up and moving around. Repeat labs did not show a reassuring resolution of his leukocytosis. However, on further evaluation of the CT, I do detect some fluid in the right lower quadrant, which could be a developing abscess. There is no air within this cavity. This could explain his ileus. PAST MEDICAL HISTORY: None. PAST SURGICAL HISTORY: Laparoscopic appendectomy. ALLERGIES TO MEDICATIONS: None. CURRENT MEDICATIONS: At home, none. SOCIAL HISTORY: Substance use: He drinks alcohol perhaps 1 or 2 days per week. Denies smoking. Denies illicit drugs. Admits to chewing tobacco, but has not used in about 5 days. FAMILY HISTORY: Significant for hypertension and heart disease. REVIEW OF SYSTEMS: A 10-system review is negative except for that listed. PHYSICAL EXAMINATION: GENERAL: He is alert. He is in no obvious distress. He does not look toxic. VITALS: Temperature 98.1, pulse 87, respirations 20, blood pressure 149/59, saturating 93% on room air. HEAD AND NECK: Normocephalic, atraumatic. He is anicteric. Nasogastric tube is in place. NECK: Supple. Full range of motion. No masses. No carotid bruits. HEART: He has a regular rate and rhythm. He does have a systolic murmur, which does not radiate to the carotids. Appears to be mitral valve regurgitation. ABDOMEN: Mildly distended. He has a nonresonant note to percussion. Incisions are clean, dry, and intact. There is no erythema. There is no rebound, but he does have quite a lot of tenderness in the right lower quadrant at the site of his fluid, which is demonstrated on the CT scan. EXTREMITIES: No clubbing, cyanosis, or edema. No calf tenderness. INTEGUMENT: No rashes. No lesions. No petechiae. NEUROLOGIC: His cranial nerves are grossly intact. Nonfocal. PSYCHIATRIC: He has appropriate affect and demeanor. He has linear thought. LABORATORY DATA: Lab showed a leukocytosis of 15,000 yesterday, this morning it is 14,000. He still has a rather profound left shift. Chemistries are fairly unremarkable. Creatinine is notably normal with a normal GFR. CT scan: I do not have an official reading, but he clearly has an ileus and there is some fluid in the right lower quadrant, which could be a developing abscess. ASSESSMENT: Ileus and peritonitis. PLAN: I will start him on some Zosyn 4.5 g every 8 hours because of a non-reassuring repeated leukocytosis. He is having bowel movements. I will remove his nasogastric tube, and I will start him on sips of clears. I did caution him to take sips only. I will recheck his labs tomorrow morning. If his labs are reassuring, I will send him home on a few days of antibiotics. I have also encouraged him to ambulate, and I will start him on some Lovenox. MMODAL /[id number]
--- NOTE | 2018-09-28 14:27 | DISCH ---
ADMISSION DATE: 09/25/2018 DISCHARGE DATE: 09/28/2018 ADMITTING DIAGNOSES: 1. Postoperative ileus. 2. Peritonitis. DISCHARGE DIAGNOSES: 1. Postoperative ileus. 2. Peritonitis. 3. Pelvic abscess. HOSPITAL COURSE: Mr. Pagan was seen on the and underwent laparoscopic appendectomy. He had purulence within the peritoneum. He had a washout and appendectomy. The patient returned on the with worsening nausea, vomiting, abdominal pain and distention. He was admitted through the ED. Nasogastric tube was placed. CT scan showed some fluid within the peritoneum, but it was not enhancing, and there was no rim enhancement. The patient was placed on Zosyn to treat his peritonitis. My expectation was he would develop a pelvic abscess. In fact, over the last 24-36 hours, he has started to develop increasing pain around the rectum with defecation and also pain in the bladder with urination. CT scan was repeated this time with IV and p.o. contrast. Now, the collection in the pelvis is rim enhancing. The Hounsfield units are 45, consistent with an abscess. He is amenable to IR drainage. He spoke with Dr. Charly Stevens in [place], and he agreed to see the patient and perform an Interventional Radiology CT-guided drainage. Dr. Price has agreed to accept the patient on the Hospitalist Service. We will keep him on antibiotics. He has IV fluids running and IV morphine when required as well. He is stable for transfer. I will make those arrangements for ambulance transport as soon as it is available. DISCHARGE MEDICATIONS: DIET: ACTIVITY: FOLLOW-UP: CONDITION ON DISCHARGE: MMANGEL /[id number]
== END 2018-09-28 11:48 | DRG 388 ==
LOC: SUPCPDRO 21:41 → JD.ED 21:41 → JD.MS 09-26 02:32
PROVIDERS: ADMIT Surgery; ATTEND Surgery
DX: K56.7 Ileus, unspecified (principal); K65.9 Peritonitis, unspecified; K65.1 Peritoneal abscess; K21.9 Gastro-esophageal reflux disease without esophagitis; F17.210 Nicotine dependence, cigarettes, uncomplicated; E87.6 Hypokalemia; Z79.899 Other long term (current) drug therapy
CPT/HCPCS: 36415; 74019; 74019-26; 74177; 74177-26; 80048; 80053; 85007; 85025; 85027; 96360; 96361; 99285; 99285-25; A9270-GY; J1650; J2270; J2543; J3480; J7030; J7040; Q9967